=== PATIENT | male | born 1945 | race Caucasian/White ===

== ENCOUNTER 2021-05-06 08:38 | Outpatient (CLI) | payer MEDICARE, OTHER ==
[~2021-05-06] VITALS: Ht 170.2 cm; Wt 66.3 kg
[2021-05-06] MEDS ORDERED: CARV6.252 PO (10:08)
[2021-05-06] MEDS ORDERED: CEPH500C PO (10:08)
[2021-05-06] MEDS ORDERED: ASPI-1238 PO (10:08)
[2021-05-06] MEDS ORDERED: TMSL.4C PO (10:08)
[2021-05-06] MEDS ORDERED: SIMV40TA25 PO (10:08)
[2021-05-06] MEDS ORDERED: LISI20TA26 PO (10:08)
== END 2021-05-06 16:30 | disposition home or self-care (01) ==
LOC: PREOP 08:38
PROVIDERS: ATTEND Urology
DX: Z01.818 Encounter for other preprocedural examination (principal)

== ENCOUNTER 2021-05-18 06:21 | Day surgery (SDC) | payer MEDICARE, OTHER ==
[~2021-05-18] VITALS: Ht 170.2 cm; Wt 66.3 kg
[2021-05-18] VITALS (8 sets, daily range): BP systolic 131–165; BP diastolic 70–91
[~2021-05-18 06:21] MED LIST: ASPI-1238 PO; CARV6.252 PO; CEPH500C PO; LISI20TA26 PO; SIMV40TA25 PO; TMSL.4C PO
[2021-05-18] MEDS ORDERED: LACTATED RINGERS 1,000 ML IV PRN (06:45)
[2021-05-18] MEDS ORDERED: MIDAZOLAM 2 MG/2 ML (VERSED) VIAL IV ONE (07:00)
--- NOTE | 2021-05-18 07:16 | Progress Note-Pre Operative ---
Pre-Operative Progress Note H&P Reviewed The H&P was reviewed, patient examined and no changes noted. Date Seen by Provider: May 18, 2021 Time Seen by Provider: 07:15 Date H&P Reviewed: May 18, 2021 Time H&P Reviewed: 07:15 Pre-Operative Diagnosis: BPH AND RETENTION HERMES YANG MD May 18, 2021 07:15
[2021-05-18] MEDS ORDERED: ONDANSETRON 4 MG/2 ML (SDV) Z0FRAN ONE (08:13)
[2021-05-18] MEDS ORDERED: proPOfol 200 MG/20 ML (DIPRIVAN) VIAL IV ONE (08:13)
[2021-05-18] MEDS ORDERED: fentaNYL INJ 100 MCG/2 ML AMP ONE (08:13)
[2021-05-18] MEDS ORDERED: LIDOCAINE PF 2% 5 ML (XYLOCAINE) VIAL ONE (08:13)
[2021-05-18] MEDS ORDERED: SEVOFLURANE (ULTANE) 15 ML INHAL SOLN ONE (08:36)
--- NOTE | 2021-05-18 08:51 | Progress Note-Post Operative ---
Post-Operative Progess Note Surgeon (s)/Preschool Principal (s) Surgeon HERMES YANG MD Preschool Principal: NONE Pre-Operative Diagnosis BPH AND RETENTION Post-Operative Diagnosis SAME AND FB BLADDER Procedure & Operative Findings Date of Procedure 05/18/21 Procedure Performed/Findings CYSTO AND REMOVAL OF FB FROM BLADDER Anesthesia Type GENERAL Estimated Blood Loss Estimated blood loss (mL): NONE Specimens/Packing Specimens Removed NONE TO PATH Packing: NONE HERMES YANG MD May 18, 2021 08:51
--- NOTE | 2021-05-18 08:54 | Discharge Inst-Urology ---
Discharge Inst-Urology Reconcile Patient Problems Problems Reviewed?: Yes Final Diagnosis BPH, URINE RETENTION, AND FB BLADDER Patient Instructions/Follow Up Plan/Assessment/Instructions Patient to make appointment to been seen in office IN [place] Thursday 05/31. I unable to void, go to ED in [facility] to reinsert Nielson and then increase Flomax to BID May resume ASA in 72 hours if no bleeding Increase oral fluids for 48 hours and then as needed. Diet and Activity as tolerated. If questions or concerns contact your physician Or seek help at emergency department. HERMES YANG MD May 18, 2021 08:54
--- NOTE | 2021-05-18 13:29 | OPERATIVE REPORT ---
DATE OF SERVICE: 05/18/2021 PREOPERATIVE DIAGNOSIS: Benign prostatic hypertrophy with urinary retention. POSTOPERATIVE DIAGNOSES: Benign prostatic hyperplasia with urinary retention. Foreign body in the bladder. OPERATION PERFORMED: Cystoscopy and removal of foreign body from the bladder. SURGEON: Edenilson Yang MD ANESTHESIA: General. COMPLICATIONS: None. DESCRIPTION OF PROCEDURE: Under satisfactory general anesthesia, the patient in lithotomy position, genitalia were prepped and draped in the usual sterile fashion. A cystoscope was introduced under vision. The anterior urethra was normal. The prostate was somewhat enlarged with bladder neck obstruction. Inspection of the bladder revealed trabeculation with some cellules hair in the bladder. Ureteral orifices were normal in shape, size and configuration with clear effluxes. No bladder tumor visualized. Using the foroblique lens, I grasped the hair with a grasping forceps and extracted it. I emptied the bladder, removed the cystoscope. The patient tolerated the procedure and anesthesia well and was sent to recovery room in stable condition. PLAN: Trial of voiding. If unable to void, go to the emergency room in [facility] to reinsert the Nielson and at that time, increase the Flomax to b.i.d. Meanwhile, the patient is to call the outpatient clinic in [place] to get an appointment to see me on 05/31 when I am there. Any question or concern, call my office. These instructions were given to his relatives. Job ID: [id number] DocumentID: [id number] Dictated Date: 05/18/2021 08:57:26 [employer] Ass[employer]or Date: 05/18/2021 13:27:57 Dictated By: EDENILSON YANG MD
--- NOTE | 2021-05-25 11:47 | Anesthesia-General Post-Op ---
General Significant Intra-Op Events Notes post date entry from 05/18/21 at 0930 Patient Condition Mental Status/LOC: Same as Preop Cardiovascular: Satisfactory Nausea/Vomiting: Absent Respiratory: Satisfactory Pain: Controlled Complications: Absent Post Op Complications Complications None Follow Up Care/Instructions Patient Instructions None needed. Anesthesia/Patient Condition Patient Condition Patient is doing well, no complaints, stable vital signs, no apparent adverse anesthesia problems. No complications reported per nursing. BRITTNEE WESTBROOK CRNA May 25, 2021 11:47
== END 2021-05-18 10:25 | disposition home or self-care (01) ==
LOC: SDC 06:21
PROVIDERS: ATTEND Urology
DX: N40.1 Benign prostatic hyperplasia with lower urinary tract symptoms (principal); T19.1XXA Foreign body in bladder, initial encounter; R33.8 Other retention of urine; N32.0 Bladder-neck obstruction; I10 Essential (primary) hypertension; I25.10 Atherosclerotic heart disease of native coronary artery without angina pectoris; E78.5 Hyperlipidemia, unspecified; F17.210 Nicotine dependence, cigarettes, uncomplicated; F41.9 Anxiety disorder, unspecified; Z95.1 Presence of aortocoronary bypass graft; Z79.899 Other long term (current) drug therapy
CPT/HCPCS: 87081